=== PATIENT | female | born 1985 | race American Indian/Alaskan Native ===

== ENCOUNTER 2017-05-03 13:16 | Emergency (ER) | payer SELFPAY ==
[2017-05-03 14:28] VITALS: BP 133/82
[2017-05-03] MEDS ORDERED: MOTRIN PO ONE (16:56)
--- NOTE | 2017-05-03 17:32 | Emergency Department Report ---
- General Chief complaint: Urogenital-Female Stated complaint: VAG CYST Time Seen by Provider: 05/03/17 15:16 Source: patient Mode of arrival: Ambulatory Limitations: No Limitations - History of Present Illness Initial comments: This is a 32-year-old female well-nourished with nontoxic or ill in appearance but presents with right Bartholin cyst x4 days. Patient stated has been having Bartholin cysts since age 16 to multiple incision and drainage. Patient stated her doctor's recommended her that she should get a procedure to remove the pore but patient stated she refused. Patient is also demanding narcotic pain medication. Patient stated ibuprofen and tramadol that she been taking has not been relieving her pain. Patient is currently alone with son. 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 Patient denies any fever, chills, nausea, vomiting, chest pain, shortness of breath, headache, stiff neck, vaginal discharge, dysuria, polyuria, numbness, tingling, blurry vision. Patient has a history of bipolar. NKDA. BARAJAS complaint: abscess/boil -: Gradual, days(s) (4) Tetanus Up to Date: yes (March 14, 2017 as per Pt) Location: genitals Severity: moderate Severity scale (0 -10): 10 Quality: burning, aching, sharp Consistency: constant Improves with: none Worsens with: none Associated symptoms: denies other symptoms Treatments Prior to Arrival: none - Related Data Home Medications Medication Instructions Recorded Confirmed Last Taken Ondansetron [Zofran Odt] 4 mg PO Q8H 04/06/15 04/06/15 Unknown Previous Rx's Medication Instructions Recorded Last Taken Type HYDROcodone/APAP 5-325 [[place] 1 each PO Q8HR PRN #21 tablet 04/06/15 Unknown Rx 5/325] Promethazine [Phenergan] 25 mg PO Q6H PRN #20 tablet 04/06/15 Unknown Rx Ranitidine HCl [Ranitidine] 150 mg PO Q12H #60 tablet 04/06/15 Unknown Rx Cephalexin [Keflex] 500 mg PO Q8HR 5 Days 05/03/17 Unknown Rx Ibuprofen [Motrin 600 MG tab] 600 mg PO Q8H PRN #15 tablet 05/03/17 Unknown Rx Allergies Allergy/AdvReac Type Severity Reaction Status Date / Time No Known Allergies Allergy Verified 04/06/15 21:22 Abscess Boil HPI - HPI Chief Complaint: Urogenital-Female Stated Complaint: VAG CYST Time Seen by Provider: 05/03/17 15:16 Home Medications: Home Medications Medication Instructions Recorded Confirmed Last Taken Ondansetron [Zofran Odt] 4 mg PO Q8H 04/06/15 04/06/15 Unknown Previous Rx's Medication Instructions Recorded Last Taken Type HYDROcodone/APAP 5-325 [[place] 1 each PO Q8HR PRN #21 tablet 04/06/15 Unknown Rx 5/325] Promethazine [Phenergan] 25 mg PO Q6H PRN #20 tablet 04/06/15 Unknown Rx Ranitidine HCl [Ranitidine] 150 mg PO Q12H #60 tablet 04/06/15 Unknown Rx Cephalexin [Keflex] 500 mg PO Q8HR 5 Days 05/03/17 Unknown Rx Ibuprofen [Motrin 600 MG tab] 600 mg PO Q8H PRN #15 tablet 05/03/17 Unknown Rx Allergies/Adverse Reactions: Allergies Allergy/AdvReac Type Severity Reaction Status Date / Time No Known Allergies Allergy Verified 04/06/15 21:22 ED Review of Systems ROS: Stated complaint: VAG CYST Other details as noted in HPI Constitutional: denies: chills, fever Eyes: denies: eye pain, eye discharge, vision change ENT: denies: ear pain, throat pain Respiratory: denies: cough, shortness of breath, wheezing Cardiovascular: denies: chest pain, palpitations Endocrine: no symptoms reported Gastrointestinal: denies: abdominal pain, nausea, diarrhea Genitourinary: denies: urgency, dysuria, discharge Musculoskeletal: denies: back pain, joint swelling, arthralgia Skin: denies: rash, lesions Neurological: denies: headache, weakness, paresthesias Psychiatric: denies: anxiety, depression Hematological/Lymphatic: denies: easy bleeding, easy bruising ED Past Medical Hx - Past Medical History Previous Medical History?: Yes Hx Psychiatric Treatment: Yes (bipolar) Additional medical history: Bartholin cyst - Surgical History Past Surgical History?: Yes Additional Surgical History: x 1 - Social History Smoking Status: Never Smoker Substance Use Type: Alcohol, Prescribed - Medications Home Medications: Home Medications Medication Instructions Recorded Confirmed Last Taken Type HYDROcodone/APAP 5-325 [[place] 1 each PO Q8HR PRN #21 tablet 04/06/15 Unknown Rx 5/325] Ondansetron [Zofran Odt] 4 mg PO Q8H 04/06/15 04/06/15 Unknown History Promethazine [Phenergan] 25 mg PO Q6H PRN #20 tablet 04/06/15 Unknown Rx Ranitidine HCl [Ranitidine] 150 mg PO Q12H #60 tablet 04/06/15 Unknown Rx Cephalexin [Keflex] 500 mg PO Q8HR 5 Days 05/03/17 Unknown Rx Ibuprofen [Motrin 600 MG tab] 600 mg PO Q8H PRN #15 tablet 05/03/17 Unknown Rx ED Physical Exam - General Limitations: No Limitations General appearance: alert, in no apparent distress - Head Head exam: Present: atraumatic, normocephalic - Eye Eye exam: Present: normal appearance, PERRL, EOMI Pupils: Present: normal accommodation - ENT ENT exam: Present: normal exam, normal orophraynx, mucous membranes moist, TM's normal bilaterally, normal external ear exam - Neck Neck exam: Present: normal inspection, full ROM. Absent: tenderness, meningismus, lymphadenopathy, thyromegaly - Respiratory Respiratory exam: Present: normal lung sounds bilaterally. Absent: respiratory distress, wheezes, rales, rhonchi, stridor, chest wall tenderness, accessory muscle use, decreased breath sounds, prolonged expiratory - Cardiovascular Cardiovascular Exam: Present: regular rate, normal rhythm, normal heart sounds. Absent: bradycardia, tachycardia, irregular rhythm, systolic murmur, diastolic murmur, rubs, gallop - GI/Abdominal GI/Abdominal exam: Present: soft, normal bowel sounds. Absent: distended, tenderness, guarding, rebound, rigid, diminished bowel sounds, hyperactive bowel sounds, hypoactive bowel sounds - Rectal Rectal exam: Present: deferred - External exam: Present: normal external exam, swelling, other (3 cm right Bartholin abscess with no pus or drainage noted. Tender to touch.). Absent: erythema, lesions, lacerations, ecchymosis, bleeding Bi-manual exam: Present: normal bi-manual exam - Extremities Exam Extremities exam: Present: normal inspection - Back Exam Back exam: Present: normal inspection - Neurological Exam Neurological exam: Present: alert, oriented X3 - Psychiatric Psychiatric exam: Present: normal affect, normal mood - Skin Skin exam: Present: warm, dry, intact, normal color. Absent: rash ED Course Vital Signs 05/03/17 14:24 Temperature 98.2 F Pulse Rate 86 Respiratory 18 Rate Blood Pressure 133/82 O2 Sat by Pulse 98 Oximetry - Reevaluation(s) Reevaluation #1: 05/03/17 17:36 Patient is yelling and demanding for noratic pain medication after patient received ibuprofen in the ED. - Consultations Consultation #1: 05/03/17 17:35 Dr. Phillips was consulted about patient demanding narcotic pain medication with nobody to drive patient and son home. Agrees to the plan of care. - I & D Vagina Type of Procedure: Complex Site: Right labia minora Blade Size: 11 I & D Procedure: betadine prep, sterile drapes applied, sterile dressing applied Progress: Prior to procedure, I examined and inflated the word Bartholin gland catheter with no signs of any leakage. Under sterile procedure, I used Betadine to cleanse the area. I then used 4 x 4 to try and clean the area. I used 25- gauge 5/8 hypo-to inject 0.5% Marcaine with epi 1-200,000 with total volume of 6 mL. I then used Betadine again cleansed area. I then used an 11 blade to make a incision of 1 cm to the site. About 1 mL of purulent drainage noted. I then used a hemostat to break down the abscess. I used 0.9% saline to flush the area with a total cc of 20. I then used a Word Bartholin Gland Catheter and placed it into the wound. I injected 5 ml of Normal Saline into the Word Cath. Patient's are well with no acute signs of distress or complications noted. Minimal bleeding noted that was under control when finished. Lula Quinteros RN present during procedure as a rug clipper. ED Medical Decision Making - Medical Decision Making Ed course: This is a 32-year-old female that presents with Bartholin abscess 1-after physical exam, an I&D of the Bartholin abscess has been obtained. Lula Quinteros RN present during procedure as a rug clipper. Patient's auto well with no signs of acute distress noted. 2- patient was very aggressive and yelling demanding for narcotic pain medication. I calmly explained to the patient that I am unable to provide narcotic medication because the patient is alone with a child and now is worried about patient leaving and driving home being sedated/drowsiness from the narcotic medication. I explained that I do not want the patient or the son to get into a MVA due to sedation/drowsiness of narcotic. Patient was offered ibuprofen but patient refused and stated this will not help her because she takes at home with no relief. 3- From my clinical judgment, ibuprofen with local anesthesia injection should be sufficient for this clinical problem. 4- jewelry cutter at [facility] was notified of the patient's behavior and demanding of narcotic. 5- RN Bisi Fregoso was currently present during interview and beginning examination of the Bartholin cyst as a rug clipper. 6- the remaining of an interview dye padder operator alonso Rossi was present. 7- patient received ibuprofen at the time of discharge and was instructed to observe symptoms of infection such as fever, chills, headache, stiff neck, numbness, tingling, chest pain, shortness of breath, headache and report back to emergency room as soon as possible. 8- at time time of discharge, the patient does not seem toxic or ill in appearance. No acute signs of distress noted. Patient agrees to discharge treatment plan of care. No further questions noted by the patient. 9- patient was instructed to follow-up with her primary care doctor/ manager land in 24 hours and have the Word Bartoline gland catheter stay for 4 weeks and report back to ED/OIL BURNER INSTALLER/PCP for removal of word cath. 10-patient received Keflex for 5 days. Critical care attestation.: If time is entered above; I have spent that time in minutes in the direct care of this critically ill patient, excluding procedure time. ED Disposition Clinical Impression: Bartholin's gland abscess Disposition: DC-01 TO HOME OR SELFCARE Is pt being admited?: No Does the pt Need Aspirin: No Condition: Stable Instructions: Ibuprofen (By mouth), Acute Wound Care (ED), Bartholin Cyst (ED) , Incision and Drainage (ED) Additional Instructions: Follow-up with your primary care doctor/manager land in 24 hours. Keep the Word Bartholin Gland catheter in for 4 weeks and return to the emergency room/manager land/PCP for removal of the Word catheter. Observe symptoms of infection such as fever, chills, headache, stiff neck, numbness, tingling, chest pain, shortness of breath, headache and report back to emergency room as soon as possible. Take Keflex as prescribed. Prescriptions: Cephalexin [Keflex] 500 mg PO Q8HR 5 Days Ibuprofen [Motrin 600 MG tab] 600 mg PO Q8H PRN #15 tablet PRN Reason: Pain Referrals: [facility] [Outside] - 3-[address] [facility] [Outside] - 3-5 Days GIOVANI PEREZ JR, MD [Staff Physician] - 3-5 Days APRYL WYMAN MD [Staff Physician] - 24 Hours PRIMARY CARE, [Primary Care Provider] - 24 Hours Forms: Work/School Release Form(ED)
[2017-05-03] MEDS ORDERED: MARCAINE-EPI 0.5%-1:200,000 INFILTRATI ONE (17:48)
== END 2017-05-03 18:49 | disposition home or self-care (01) ==
LOC: ED 13:16
DX: N75.1 Abscess of Bartholin's gland (principal); F31.9 Bipolar disorder, unspecified

== ENCOUNTER 2019-11-04 16:47 | Emergency (ER) | payer SELFPAY ==
[2019-11-04 18:29] LABS: Basophils # (Auto) 0.1 K/mm3 (0.0-0.1); Basophils % (Auto) 0.7 % (0.0-1.8); Eosinophils % (Auto) 0.3 % (0.0-4.3); Hemoglobin 13.1 gm/dl (10.1-14.3); Lymphocytes # (Auto) 1.6 K/mm3 (1.2-5.4); Lymphocytes % (Auto) 18.2 % (13.4-35.0); Monocytes # (Auto) 0.4 K/mm3 (0.0-0.8); Monocytes % (Auto) 4.7 % (0.0-7.3)
[2019-11-04 18:37] LABS: Hematocrit 39.3 % (30.3-42.9); Mean Corpuscular HGB Conc 34 % (30-34); Mean Corpuscular Volume 88 fl (79-97); Platelet Count 340 K/mm3 (140-440); Red Blood Count 4.46 M/mm3 (3.65-5.03); Red Cell Distribution Width 14.1 % (13.2-15.2)
[2019-11-04 18:47] LABS: Alanine Aminotransferase 13 units/L (7-56); Albumin 4.7 g/dL (3.9-5); BUN/Creatinine Ratio 7; Blood Urea Nitrogen 8 mg/dL (7-17); Calcium 9.6 mg/dL (8.4-10.2); Hemolysis Index 16
[2019-11-04 19:22] LABS: Bilirubin,Urine NEG (Negative); Blood,Urine NEG (Negative); Color,Urine Amber (Yellow); Mucus,Urine 3+ /HPF
[2019-11-04] MEDS ORDERED: cefTRIAXone/NS 1 GM/50 ML 1 GM/50 ML BAG IV ONE (19:55)
[2019-11-04] MEDS ORDERED: FAMOTIDINE 20 MG/2 ML INJ IV ONE (19:55)
[2019-11-04] MEDS ORDERED: SODIUM CHLORIDE 0.9% 1000 ML 1,000 ML IV ONE (19:56)
[2019-11-04] MEDS ORDERED: ONDANSETRON 4 MG/2 ML INJ IV ONE (19:57)
--- NOTE | 2019-11-04 21:31 | Ultrasound Report ---
ULTRASOUND ABDOMEN, LIMITED (RIGHT UPPER QUADRANT) INDICATION / CLINICAL INFORMATION: NAUSEA, VOMITING, EPIGASTRIC PAIN. COMPARISON: None available. FINDINGS: PANCREAS: Visualized portion shows no significant abnormality. LIVER: There is a 1.3 cm hyperechoic mass in the right lobe of the liver. The appearance is most sugg estive of a hemangioma. Remainder of the liver is normal. . GALLBLADDER: No significant abnormality. No gallstones or gallbladder wall thickening. BILE DUCTS: No significant abnormality. Common bile duct measures 1-2 mm. FREE FLUID: None. ADDITIONAL FINDINGS: None. IMPRESSION: 1. No acute finding within the right upper quadrant. Specifically, the gallbladder is unremarkable. 2. Incidental finding of a 13 mm hyperechoic mass in the right lobe of the liver. Statistically, this is most likely a benign hemangioma. Signer Name: Corinna Lagos MD Signed: 11/04/2019 9:26 PM Workstation Name: [id number]
--- NOTE | 2019-11-04 21:54 | Emergency Department Report ---
ED N/V/D HPI - General Chief complaint: Nausea/Vomiting/Diarrhea Stated complaint: VOMITING Source: patient Mode of arrival: Ambulatory Limitations: No Limitations - History of Present Illness Initial comments: Patient is a 34-year-old female who presented to the ED with complaint of acute onset persistent intermittent nausea and vomiting for the last 1 week, worse in the last 2 days. Patient stated that she not been able to keep anything down in the last 5 days. Patient states that she was diagnosed with acute urinary tract infection at another hospital and was discharged home on oral antibiotics and antiemetics Zofran 4 mg ODT but that these medication has not helped his nausea and vomiting and that each time she took antibiotics she kept vomiting medicine. Patient denies dizziness, syncope, diarrhea, chest pain, shortness of breath, dysuria, urinary frequency and urgency, hematemesis, or vaginal bleeding, vaginal discharge, fever and chills or cough. MD complaint: nausea, vomiting, abdominal pain (epigastic pain) -: Sudden, week(s) (1) Description of Vomiting: food contents, watery, bilious Associated Abdominal Pain: Yes (epigastric pain) Location: epigastric Radiation: none Severity: severe Pain Scale: 7 Quality: cramping, aching, sharp Consistency: constant Improves with: none Worsens with: eating, vomiting Associated Symptoms: denies other symptoms, loss of appetite, nausea/vomiting. denies: myalgias, chest pain, cough, diaphoresis, fever/chills, headaches, malaise, rash, dysuria, shortness of breath, syncope, weakness, other - Related Data Home Medications Medication Instructions Recorded Confirmed Last Taken Ondansetron [Zofran Odt] 4 mg PO Q8H 04/06/15 04/06/15 Unknown Previous Rx's Medication Instructions Recorded Last Taken Type HYDROcodone/APAP 5-325 [[place] 1 each PO Q8HR PRN #21 tablet 04/06/15 Unknown Rx 5/325] Promethazine [Phenergan] 25 mg PO Q6H PRN #20 tablet 04/06/15 Unknown Rx raNITIdine HCl [Ranitidine] 150 mg PO Q12H #60 tablet 04/06/15 Unknown Rx Ibuprofen [Motrin 600 MG tab] 600 mg PO Q8H PRN #15 tablet 05/03/17 Unknown Rx cephALEXin [Keflex] 500 mg PO Q8HR 5 Days cap 05/03/17 Unknown Rx Dicyclomine [Bentyl] 20 mg PO Q6H PRN #24 tablet 11/04/19 Unknown Rx Famotidine [Pepcid] 20 mg PO Q12H #60 tablet 11/04/19 Unknown Rx Promethazine [Phenergan] 25 mg PO Q6HR PRN #24 tab 11/04/19 Unknown Rx Promethazine [Phenergan] 25 mg HI Q6HR PRN #15 supp.rect 11/04/19 Unknown Rx cephALEXin [Keflex] 500 mg PO Q8HR #30 cap 11/04/19 Unknown Rx Allergies Allergy/AdvReac Type Severity Reaction Status Date / Time No Known Allergies Allergy Verified 11/04/19 16:49 ED Review of Systems ROS: Stated complaint: VOMITING Other details as noted in HPI Constitutional: denies: chills, fever Eyes: denies: eye pain, eye discharge, vision change ENT: denies: ear pain, throat pain Respiratory: denies: cough, shortness of breath, wheezing Cardiovascular: denies: chest pain, palpitations Endocrine: no symptoms reported Gastrointestinal: abdominal pain (epigastric pain), nausea, vomiting. denies: diarrhea Genitourinary: denies: urgency, dysuria, discharge Musculoskeletal: denies: back pain, joint swelling, arthralgia Skin: denies: rash, lesions Neurological: denies: headache, weakness, paresthesias Psychiatric: denies: anxiety, depression Hematological/Lymphatic: denies: easy bleeding, easy bruising ED Past Medical Hx - Past Medical History Previous Medical History?: Yes Hx Psychiatric Treatment: Yes (bipolar) Additional medical history: Bartholin cyst - Surgical History Past Surgical History?: Yes Additional Surgical History: x 1 - Social History Smoking Status: Former Smoker Substance Use Type: None - Medications Home Medications: Home Medications Medication Instructions Recorded Confirmed Last Taken Type HYDROcodone/APAP 5-325 [[place] 1 each PO Q8HR PRN #21 tablet 04/06/15 Unknown Rx 5/325] Ondansetron [Zofran Odt] 4 mg PO Q8H 04/06/15 04/06/15 Unknown History Promethazine [Phenergan] 25 mg PO Q6H PRN #20 tablet 04/06/15 Unknown Rx raNITIdine HCl [Ranitidine] 150 mg PO Q12H #60 tablet 04/06/15 Unknown Rx Ibuprofen [Motrin 600 MG tab] 600 mg PO Q8H PRN #15 tablet 05/03/17 Unknown Rx cephALEXin [Keflex] 500 mg PO Q8HR 5 Days cap 05/03/17 Unknown Rx Dicyclomine [Bentyl] 20 mg PO Q6H PRN #24 tablet 11/04/19 Unknown Rx Famotidine [Pepcid] 20 mg PO Q12H #60 tablet 11/04/19 Unknown Rx Promethazine [Phenergan] 25 mg PO Q6HR PRN #24 tab 11/04/19 Unknown Rx Promethazine [Phenergan] 25 mg HI Q6HR PRN #15 supp.rect 11/04/19 Unknown Rx cephALEXin [Keflex] 500 mg PO Q8HR #30 cap 11/04/19 Unknown Rx ED Physical Exam - General Limitations: No Limitations General appearance: alert, in no apparent distress - Head Head exam: Present: atraumatic, normocephalic, normal inspection - Eye Eye exam: Present: normal appearance, PERRL, EOMI Pupils: Present: normal accommodation - ENT ENT exam: Present: normal exam, normal orophraynx, mucous membranes moist, TM's normal bilaterally, normal external ear exam - Neck Neck exam: Present: normal inspection, full ROM. Absent: tenderness - Respiratory Respiratory exam: Present: normal lung sounds bilaterally. Absent: respiratory distress, wheezes, rales, stridor, chest wall tenderness, accessory muscle use, prolonged expiratory - Cardiovascular Cardiovascular Exam: Present: regular rate, normal rhythm, normal heart sounds. Absent: systolic murmur, diastolic murmur, rubs, gallop - GI/Abdominal GI/Abdominal exam: Present: soft, tenderness (epigastric ), normal bowel sounds. Absent: guarding, rebound, hyperactive bowel sounds, hypoactive bowel sounds - Extremities Exam Extremities exam: Present: normal inspection, full ROM, normal capillary refill - Back Exam Back exam: Present: normal inspection, full ROM. Absent: tenderness, muscle spasm, paraspinal tenderness - Neurological Exam Neurological exam: Present: alert, oriented X3, CN II-XII intact, normal gait, r eflexes normal - Psychiatric Psychiatric exam: Present: normal affect, normal mood - Skin Skin exam: Present: warm, dry, intact, normal color. Absent: rash ED Course Vital Signs 11/04/19 17:46 Temperature 98.5 F Pulse Rate 97 H Respiratory 18 Rate Blood Pressure 136/71 O2 Sat by Pulse 97 Oximetry ED Medical Decision Making - Lab Data Result diagrams: 11/04/19 18:16 11/04/19 18:16 - Radiology Data Radiology results: report reviewed, image reviewed Findings [facility] [address] [place] [address] Ultrasound Report Signed Patient: HOWARD SANCHEZ MR#: [id number] : 1985 Acct:[id number] Age/Sex: 34 / F ADM Date: 11/04/19 Loc: ED Attending Dr: Ordering Physician: RYAN UP Date of Service: 11/04/19 Procedure(s): US abdomen limited Accession Number(s): [id number] cc: RYAN UP ULTRASOUND ABDOMEN, LIMITED (RIGHT UPPER QUADRANT) INDICATION / CLINICAL INFORMATION: NAUSEA, VOMITING, EPIGASTRIC PAIN. COMPARISON: None available. FINDINGS: PANCREAS: Visualized portion shows no significant abnormality. LIVER: There is a 1.3 cm hyperechoic mass in the right lobe of the liver. The appearance is most suggestive of a hemangioma. Remainder of the liver is normal. . GALLBLADDER: No significant abnormality. No gallstones or gallbladder wall thickening. BILE DUCTS: No significant abnormality. Common bile duct measures 1-2 mm. FREE FLUID: None. ADDITIONAL FINDINGS: None. IMPRESSION: 1. No acute finding within the right upper quadrant. Specifically, the g allbladder is unremarkable. 2. Incidental finding of a 13 mm hyperechoic mass in the right lobe of the liver. Statistically, this is most likely a benign hemangioma. Signer Name: Corinna Lagos MD Signed: 11/04/2019 9:26 PM Workstation Name: [id number] Transcribed By: JR Dictated By: Corinna Lagos MD Electronically Authenticated By: Corinna Lagos MD Signed Date/Time: 11/04/192125 DD/ 22 TD/TT: - Medical Decision Making This is a 34-year-old female who presented to the ED with complaint of acute onset persistent intermittent nausea and vomiting for the last 1 week, worse in the last 2 days. Patient stated that she not been able to keep anything down in the last 5 days. In the ED, patient is alert and oriented 3 and is in distress, spitting in the emesis bag between her speech during the physical exam. Lab test results were reviewed and are on except for urinalysis that shows mildly demented tract infection. Patient was treated for nausea and vomiting and pain in the ED. Gallbladder ultrasound shows no acute finding within the right upper quadrant. Specifically, the gallbladder is unremarkable. There is however an incidental finding of a 13 mm hyperechoic mass in the right lobe of the liver. Statistically, this is most likely a benign hemangioma. On reevaluation patient nausea and vomiting has resolved as well as pain. The patient will discharged home on Phenergan prescription and Keflex for urinary tract infection as well as Pepcid. Patient was advised to follow-up with her primary care physician in 5-7 days for reevaluation or return to the ED immediately if symptoms get worse. - Differential Diagnosis GERD; Cholelithiasis; UTI; Pancreatitis; Dehydration Critical care attestation.: If time is entered above; I have spent that time in minutes in the direct care of this critically ill patient, excluding procedure time. ED Disposition Clinical Impression: Acute epigastric pain, Nausea and vomiting in adult, Acute urinary tract infection GERD (gastroesophageal reflux disease) Qualifiers: Esophagitis presence: without esophagitis Qualified Code(s): K21.9 - Gastro- esophageal reflux disease without esophagitis Disposition: DC-01 TO HOME OR SELFCARE Is pt being admited?: No Does the pt Need Aspirin: No Condition: Stable Instructions: Acute Abdominal Pain (ED), Acute Nausea and Vomiting (ED), Gastroesophageal Reflux Disease (ED), Urinary Tract Infection in Women (ED) Additional Instructions: Maintain a clear liquid diet for 12-24 hours, take medications as needed, drink plenty of fluids and follow up with your primary care physician in 5-7 days for reevaluation or return to the ED immediately if symptoms get worse. Prescriptions: Dicyclomine [Bentyl] 20 mg PO Q6H PRN #24 tablet PRN Reason: abdominal pain cephALEXin [Keflex] 500 mg PO Q8HR #30 cap Famotidine [Pepcid] 20 mg PO Q12H #60 tablet Promethazine [Phenergan] 25 mg PO Q6HR PRN #24 tab PRN Reason: Nausea Promethazine [Phenergan] 25 mg HI Q6HR PRN #15 supp.rect PRN Reason: Nausea Referrals: LIAT CARRERA MD [Staff Physician] - 7-10 days (Maintain a clear liquid diet for 12-24 hours, take medications with food, drink plenty of fluids and follow-up with primary care physician is advised.) Time of Disposition: 22:05 Print Language: DIVEHI
[2019-11-04 22:43] VITALS: BP 106/56
== END 2019-11-04 22:44 | disposition home or self-care (01) ==
LOC: ED 16:47
DX: K21.9 Gastro-esophageal reflux disease without esophagitis (principal); N39.0 Urinary tract infection, site not specified; F31.9 Bipolar disorder, unspecified; Z87.891 Personal history of nicotine dependence; Z98.890 Other specified postprocedural states; Z79.899 Other long term (current) drug therapy
CPT/HCPCS: 36415; 76705; 80053; 81001; 85025; 96361; 96365; 96375; 99284; J0696; J2405; J7030